=== PATIENT | female | born 1965 | race Two or more races ===

== ENCOUNTER → 2017-01-13 | Outpatient (REF) | payer OTHER | LOC: M SFHCLERA 11:43 | PROVIDERS: ATTEND Nurse Practitioner Family | DX: R30.0 Dysuria (principal); H69.83 Other specified disorders of Eustachian tube, bilateral ==

== ENCOUNTER → 2017-06-20 | Outpatient (CLI) | payer OTHER | LOC: M RAD 14:56 | DX: Z09 Encounter for follow-up examination after completed treatment for conditions other than malignant neoplasm (principal); R93.49 Abnormal radiologic findings on diagnostic imaging of other urinary organs; Z87.442 Personal history of urinary calculi | CPT/HCPCS: 74176 ==

== ENCOUNTER 2017-07-27 05:51 | Day surgery (SDC) | payer OTHER ==
[2017-07-27] MEDS: LIDOCAINE 3.5 % 1ML OPHTH TOPICAL GEL OU (06:50)
[2017-07-27] MEDS: OFLOXACIN 0.3 % (OCUFLOX) OPTH SOL 5ML OS (06:55)
[2017-07-27] MEDS ORDERED: MIDAZOLAM INJ 2 MG/2 ML VIAL (J2250) As Ordered ×2 (07:29→11:13)
[2017-07-27] MEDS ORDERED: fentaNYL 100 MCG/2 ML INJECTION (J3010) As Ordered ×2 (07:29→11:13)
[2017-07-27] MEDS: POVIDONE-IODINE 5% OPHTH PREP SOL 30ML As Ordered (08:36)
[2017-07-27] MEDS ORDERED: LIDOCAINE 2% INJ 100 MG/5 ML SDV (FOR ANES.) As Ordered (08:37)
[2017-07-27] MEDS ORDERED: PROPOFOL 200 MG/20 ML VIAL As Ordered (08:37)
[2017-07-27] MEDS: mitoMYcin 0.2 MG/VIAL KIT FOR OPHTHALMIC USE (J7315 PER 0.2MG) As Ordered (08:45)
[2017-07-27] MEDS: LIDOCAINE 2% W/EPIN INJ 20ML **PRES FREE As Ordered (08:55)
[2017-07-27] MEDS: TOBRADEX OPHTH OINT 3.5 GM As Ordered (08:59)
[2017-07-27] MEDS: TOBRAMYCIN INJ 80 MG/2 ML VIAL (J3260) As Ordered (09:00)
[2017-07-27] MEDS: BETAMETHASONE SOLUSPAN 6MG/ML INJ 5ML (J0702) As Ordered (09:01)
[2017-07-27] MEDS ORDERED: ACETAMINOPHEN TAB 650MG DOSE (2X325MG) PO (09:30)
[2017-07-27] MEDS ORDERED: LR 1,000 ML IV (09:30)
[2017-07-27] MEDS ORDERED: ONDANSETRON 4MG/2ML VIAL (J2405) IV (09:30)
== END 2017-07-27 09:30 | disposition home or self-care (01) ==
LOC: M SDC 05:51
DX: H11.002 Unspecified pterygium of left eye (principal); F41.9 Anxiety disorder, unspecified; Z87.440 Personal history of urinary (tract) infections; Z88.0 Allergy status to penicillin; Z88.8 Allergy status to other drugs, medicaments and biological substances; Z79.899 Other long term (current) drug therapy
CPT/HCPCS: 65426

== ENCOUNTER → 2018-02-03 | Outpatient (REF) | payer OTHER ==
[2018-02-03 22:00] LABS: CHLAMYDIA DNA AMPLIFICATION NEGATIVE (NEGATIVE); GC DNA AMPLIFICATION NEGATIVE (NEGATIVE)
== END ==
LOC: M SFHCLERA 15:06
DX: R30.0 Dysuria (principal)

== ENCOUNTER → 2018-05-12 | Outpatient (REF) | payer OTHER ==
[~2018-05-12] MED LIST: CYCL10TA PO; FISH120012 PO; HAIR1TAB5 PO; IBUP-1114 PO; IRON65TA PO; MAGN200T PO; MULT1TAB18 PO; PROBCAP4 PO; VITA500046 PO; VITA500T PO; VITA500T53 PO; VITA50TA43 PO
== END ==
LOC: M SFHCLERA 11:53
PROVIDERS: ATTEND Nurse Practitioner Family
DX: R10.9 Unspecified abdominal pain (principal)

== ENCOUNTER → 2018-05-25 | Outpatient (CLI) | payer OTHER ==
[2018-05-25 13:51] LABS: BACTERIA, URINE AUTO NEGATIVE (NEGATIVE); MUCUS, URINE SMALL (NEGATIVE); RBC, URINE AUTO 0 /HPF (0-3); SQUAMOUS EPITHELIAL CELL UR AU 0 /HPF (0-6); WBC, URINE AUTO 1 /HPF (0-3)
[2018-05-25 14:16] LABS: BLOOD UREA NITROGEN 17 MG/DL (7-18); CARBON DIOXIDE LEVEL 27 MEQ/L (21-32); CHLORIDE LEVEL 106 MEQ/L (98-107); CREATININE FOR GFR 0.97 MG/DL (0.55-1.30); GLOMERULAR FILTRATION RATE > 60.0 (>51); GLUCOSE, FASTING 102 MG/DL (70-100); POTASSIUM SERUM 4.4 MEQ/L (3.5-5.1); SODIUM LEVEL 140 MEQ/L (136-145)
== END ==
LOC: M SMT 09:34
PROVIDERS: ATTEND Specialist
DX: R35.0 Frequency of micturition (principal)

== ENCOUNTER → 2018-06-25 | Outpatient (REF) | payer OTHER | LOC: M SFHCLERA 16:35 | PROVIDERS: ATTEND Nurse Practitioner Family | DX: R30.0 Dysuria (principal) ==

== ENCOUNTER 2018-08-02 11:33 | Outpatient (RCR) | payer OTHER ==
[~2018-08-02 11:33] MED LIST changes: +VITA500T17 PO; -VITA500T53 PO
== END 2018-08-08 ==
LOC: M PT 11:33
PROVIDERS: ATTEND Nurse Practitioner Family
DX: R32 Unspecified urinary incontinence (principal)

== ENCOUNTER 2018-09-06 08:00 | Outpatient (RCR) | payer OTHER | END 2018-09-08 | LOC: M PT 08:00 | PROVIDERS: ATTEND Nurse Practitioner Family | DX: R39.89 Other symptoms and signs involving the genitourinary system (principal) ==

== ENCOUNTER 2018-10-04 08:45 | Outpatient (RCR) | payer OTHER | END 2018-10-08 | LOC: M PT 08:45 | PROVIDERS: ATTEND Nurse Practitioner Family | DX: R32 Unspecified urinary incontinence (principal); R39.89 Other symptoms and signs involving the genitourinary system ==

== ENCOUNTER 2018-10-27 08:44 | Outpatient (RCR) | payer OTHER | END 2018-11-08 | LOC: M PT 08:44 | PROVIDERS: ATTEND Nurse Practitioner Family | DX: Z51.89 Encounter for other specified aftercare (principal); R39.89 Other symptoms and signs involving the genitourinary system; R32 Unspecified urinary incontinence ==

== ENCOUNTER → 2019-05-30 | Outpatient (REF) | payer OTHER | LOC: M SFHCLERA 13:13 | PROVIDERS: ATTEND Nurse Practitioner Family | DX: R35.0 Frequency of micturition (principal) | CPT/HCPCS: 81002; 87086; G0463 ==

== ENCOUNTER → 2022-04-28 | Outpatient (CLI) | payer OTHER ==
[~2022-04-28] MED LIST changes: +CYCL-707 PO; -CYCL10TA PO; +VITA-243 PO; -VITA500T PO
[2022-04-28 11:33] LABS: LIPASE 413 U/L (12-53)
[2022-04-28 11:34] LABS: IMMUNOGLOBULIN A 306.2 MG/DL (40-350)
[2022-04-28 11:36] LABS: ALBUMIN 3.7 G/DL (3.2-5.2); ALKALINE PHOSPHATASE 93 U/L (46-116); ALT/SGPT 38 U/L (7.0-40); AST/SGOT 20 U/L (<34); BILIRUBIN,TOTAL 0.3 MG/DL (0.3-1.2); BLOOD UREA NITROGEN 17 MG/DL (9-23); CALCIUM LEVEL 9.3 MG/DL (8.5-10.1); CARBON DIOXIDE LEVEL 32 MMOL/L (20-31); CHLORIDE LEVEL 104 MMOL/L (98-107); CREATININE FOR GFR 0.96 MG/DL (0.55-1.30); GLOMERULAR FILTRATION RATE > 60.0 (>51); GLUCOSE, FASTING 105 MG/DL (60-100); POTASSIUM SERUM 4.5 MMOL/L (3.5-5.1); SODIUM LEVEL 141 MMOL/L (136-145)
[2022-04-28 11:49] LABS: CA19-9 TUMOR MARKER,CARBOHYDRA 2.2 U/ML (<35.0)
[2022-04-30 07:09] LABS: TISSUE TRANSGLUTAMINASE IgA <2 U/mL (0-3)
== END ==
LOC: M LAB 10:37
PROVIDERS: ATTEND Internal Medicine Gastroenterology
DX: D37.8 Neoplasm of uncertain behavior of other specified digestive organs (principal)

== ENCOUNTER 2022-05-20 07:44 | Day surgery (SDC) | payer OTHER ==
[~2022-05-20] VITALS: Ht 167.6 cm; Wt 91.6 kg
[~2022-05-20 07:44] MED LIST changes: +CREO3600; +CVS-161 PO; +CVS1CAP5 PO; +DULO1CAP5 PO; +GING1CAP PO; +IRON65TA2 PO; +KP F1200 PO; +NERVE; +NS 1,000 ML IV ONE; +RA T500C2 PO; +VITA100093 PO; +VITMTA PO
[2022-05-20] MEDS ORDERED: MACR100C43 PO (08:31)
[2022-05-20] MEDS ORDERED: LIDOCAINE 2% 100MG/5ML SDV (FOR ANES.) As Ordered ONE (09:13)
[2022-05-20] MEDS ORDERED: propofoL 200 MG/20 ML VIAL As Ordered ONE (09:13)
[2022-05-20 09:51] VITALS: BP 120/58
== END 2022-05-20 09:59 | disposition home or self-care (01) ==
LOC: M OPP 07:44
PROVIDERS: ATTEND Internal Medicine Gastroenterology
DX: Z12.11 Encounter for screening for malignant neoplasm of colon (principal); Z86.010 Personal history of colon polyps; K63.5 Polyp of colon; K57.30 Diverticulosis of large intestine without perforation or abscess without bleeding; K64.8 Other hemorrhoids; Z79.1 Long term (current) use of non-steroidal anti-inflammatories (NSAID); Z79.899 Other long term (current) drug therapy

== ENCOUNTER → 2022-10-07 | Outpatient (CLI) | payer OTHER ==
[~2022-10-07] MED LIST changes: +MACR100C43 PO; -NS 1,000 ML IV ONE
[2022-10-07 08:55] LABS: TOTAL IRON BINDING CAPACITY 306 UG/DL (250-425)
[2022-10-07 08:56] LABS: ALBUMIN 3.6 G/DL (3.2-5.2); ALKALINE PHOSPHATASE 89 U/L (46-116); ALT/SGPT 23 U/L (7.0-40); AST/SGOT 11 U/L (<34); BILIRUBIN,DIRECT < 0.1 MG/DL (<0.4); BILIRUBIN,TOTAL 0.4 MG/DL (0.3-1.2); IRON (FE) 66 UG/DL (50-170); PERCENT SATURATION 21.6 % (13.2-45.0); TOTAL PROTEIN 6.5 G/DL (5.7-8.2)
[2022-10-07 09:20] LABS: HEPATITIS B SURFACE ANTIGEN NEGATIVE (NEGATIVE)
[2022-10-07 09:41] LABS: HEPATITIS B CORE ANTIBODY IGM NEGATIVE (NEGATIVE); HEPATITIS C VIRUS ABY INDEX 0.08 INDEX (<0.8)
[2022-10-11 18:07] LABS: ALPHA 1 ANTITRYPSIN 120 mg/dL (101-187); ANCA-ATYPICAL <1:20 titer (Neg:<1:20); ANTI-MITOCHONDRIAL ANTIBODY <20.0 Units (0.0-20.0); ANTINUCLEAR ANTIBODIES DIRECT Negative (Negative); CERULOPLASMIN 24.5 mg/dL (19.0-39.0); CYTOPLASMIC NEUTROP AB ANCA-C <1:20 titer (Neg:<1:20); PERINUCLEAR AB ANCA-P <1:20 titer (Neg:<1:20); TISSUE TRANSGLUTAMINASE IgA <2 U/mL (0-3)
== END ==
LOC: M RAD 07:52
PROVIDERS: ATTEND Internal Medicine Gastroenterology
DX: K76.0 Fatty (change of) liver, not elsewhere classified (principal); R93.2 Abnormal findings on diagnostic imaging of liver and biliary tract

== ENCOUNTER 2022-10-22 18:16 | Emergency (ER) | payer OTHER ==
[~2022-10-22] VITALS: Ht 167.6 cm; Wt 90.9 kg
[2022-10-22 20:31] LABS: BASO # 0.1 10^3/uL (0.0-0.2); BASO % 0.9 % (0.0-1.0); EOS # 0.1 10^3/uL (0.0-0.5); EOS % 2.6 % (0.0-3.0); HEMOGLOBIN 14.4 g/dl (12.0-15.5); LYMPH % 36.7 % (24.0-44.0); MEAN CORPUSCULAR HEMOGLOBIN 29.8 pg (27.0-33.0); MEAN CORPUSCULAR HGB CONC 34.3 g/dl (32.0-36.5); MONO # 0.6 10^3/uL (0.0-0.8); MONO % 10.5 % (2.0-8.0); NEUTROPHILS # 2.7 10^3/uL (1.5-8.5); NEUTROPHILS % 48.9 % (36.0-66.0); PLATELET COUNT, AUTOMATED 240 10^3/uL (150-450); RED BLOOD COUNT 4.83 10^6/uL (4.00-5.40); WHITE BLOOD COUNT 5.4 10^3/uL (4.0-10.0)
[2022-10-22 21:04] LABS: LIPASE 48 U/L (12-53)
[2022-10-22 21:06] LABS: ALBUMIN 3.8 G/DL (3.2-5.2); ALKALINE PHOSPHATASE 109 U/L (46-116); ALT/SGPT 27 U/L (7.0-40); AST/SGOT 13 U/L (<34); BILIRUBIN,DIRECT < 0.1 MG/DL (<0.4); BILIRUBIN,TOTAL 0.3 MG/DL (0.3-1.2); BLOOD UREA NITROGEN 21 MG/DL (9-23); CALCIUM LEVEL 9.5 MG/DL (8.5-10.1); CARBON DIOXIDE LEVEL 26 MMOL/L (20-31); CHLORIDE LEVEL 107 MMOL/L (98-107); CREATININE FOR GFR 1.11 MG/DL (0.55-1.30); GLOMERULAR FILTRATION RATE 53.9 (>51); GLUCOSE, FASTING 98 MG/DL (60-100); POTASSIUM SERUM 4.5 MMOL/L (3.5-5.1); SODIUM LEVEL 140 MMOL/L (136-145); TOTAL PROTEIN 6.6 G/DL (5.7-8.2)
[2022-10-23] MEDS ORDERED: KETOROLAC 30 MG/ML 1ML VIAL IM ONE (05:05)
[2022-10-23] MEDS ORDERED: PHENAZOPYRIDINE 100 MG TAB PO ONE (05:05)
[2022-10-23] MEDS ORDERED: LIDOCAINE 1% SDV 5ML VIAL DILUENT ONE (06:50)
[2022-10-23] MEDS ORDERED: cefTRIAXone SOD 1GM VIAL IM ONE (06:50)
[2022-10-23] MEDS ORDERED: PYRI1TAB5 PO (07:28)
[2022-10-23 07:35] VITALS: BP 115/55; TEMP 96.7; O2SAT 100
== END 2022-10-23 08:03 | disposition home or self-care (01) ==
LOC: M ED 18:16
DX: N30.00 Acute cystitis without hematuria (principal); N30.10 Interstitial cystitis (chronic) without hematuria; Z88.0 Allergy status to penicillin; Z88.8 Allergy status to other drugs, medicaments and biological substances; Z79.899 Other long term (current) drug therapy
CPT/HCPCS: 76775; 80048; 80076; 81001; 83690; 85025; 87086; 96372; 99283; J0696; J1885

== ENCOUNTER → 2022-11-08 | Outpatient (CLI) | payer OTHER ==
[~2022-11-08] MED LIST changes: +ISOVUE-370 76% 100ML VIAL As Ordered ONE; +PYRI1TAB5 PO
== END ==
LOC: M RAD 07:43
PROVIDERS: ATTEND Internal Medicine Gastroenterology
DX: R59.0 Localized enlarged lymph nodes (principal)
CPT/HCPCS: 71260; Q9967

== ENCOUNTER → 2023-11-24 | Outpatient (REF) | payer OTHER ==
[~2023-11-24] MED LIST changes: -ISOVUE-370 76% 100ML VIAL As Ordered ONE
[2023-11-24 13:25] LABS: APPEARANCE, URINE CLEAR (CLEAR); BACTERIA, URINE AUTO NEGATIVE (NEGATIVE); BILIRUBIN, URINE AUTO NEGATIVE (NEGATIVE); BLOOD, URINE BLOOD NEGATIVE (NEGATIVE); COLOR, URINE YELLOW (YELLOW); GLUCOSE, URINE (UA) AUTO NEGATIVE (NEGATIVE); KETONE, URINE AUTO NEGATIVE (NEGATIVE); LEUKOCYTE ESTERASE, URINE AUTO NEGATIVE (NEGATIVE); MUCUS, URINE SMALL (NEGATIVE); NITRITE, URINE AUTO NEGATIVE (NEGATIVE); PROTEIN, URINE AUTO NEGATIVE (NEGATIVE); RBC, URINE AUTO 0 /HPF (0-3); SPECIFIC GRAVITY URINE AUTO 1.013 (1.002-1.035); SQUAMOUS EPITHELIAL CELL UR AU 0 /HPF (0-6); UROBILINOGEN, URINE AUTO 0.2 mg/dL (0.0-2.0); WBC, URINE AUTO 0 /HPF (0-3)
== END ==
LOC: M SMT 13:03
PROVIDERS: ATTEND Physician Assistant
DX: R32 Unspecified urinary incontinence (principal)

== ENCOUNTER → 2023-12-14 | Outpatient (CLI) | payer OTHER | LOC: M PLAIMG 08:59 | PROVIDERS: ATTEND Internal Medicine | DX: R01.1 Cardiac murmur, unspecified (principal) ==

== ENCOUNTER → 2024-03-14 | Outpatient (CLI) | payer OTHER ==
[~2024-03-14] MED LIST changes: +CEFP200T PO; +DULO1CAP4 PO; +METH-1164 PO; +METH-855 PO
[2024-03-14 13:57] LABS: HEMATOCRIT 41.8 % (36.0-47.0); HEMOGLOBIN 13.9 g/dl (12.0-15.5); MEAN CORPUSCULAR HEMOGLOBIN 30.1 pg (27.0-33.0); MEAN CORPUSCULAR HGB CONC 33.3 g/dl (32.0-36.5); MEAN CORPUSCULAR VOLUME 90.5 fl (80.0-96.0); PLATELET COUNT, AUTOMATED 243 10^3/uL (150-450); RED BLOOD COUNT 4.62 10^6/uL (4.00-5.40); WHITE BLOOD COUNT 5.3 10^3/uL (4.0-10.0)
[2024-03-14 14:33] LABS: ALBUMIN 3.7 G/DL (3.2-5.2); ALKALINE PHOSPHATASE 83 U/L (35-104); ALT/SGPT 37 U/L (7.0-40); AST/SGOT 13 U/L (<34); BILIRUBIN,TOTAL 0.3 MG/DL (0.3-1.2); BLOOD UREA NITROGEN 19 MG/DL (9-23); CALCIUM LEVEL 10.1 MG/DL (8.5-10.1); CARBON DIOXIDE LEVEL 28 MMOL/L (20-31); CHLORIDE LEVEL 109 MMOL/L (98-107); CREATININE FOR GFR 0.98 MG/DL (0.55-1.30); GLOMERULAR FILTRATION RATE > 60.0 (>51); GLUCOSE, FASTING 105 MG/DL (60-100); POTASSIUM SERUM 4.2 MMOL/L (3.5-5.1); SODIUM LEVEL 144 MMOL/L (136-145); TOTAL PROTEIN 6.8 G/DL (5.7-8.2)
== END ==
LOC: M RAD 12:29
PROVIDERS: ATTEND Urology
DX: N39.3 Stress incontinence (female) (male) (principal)

== ENCOUNTER 2024-03-19 07:52 | Day surgery (SDC) | payer OTHER ==
[~2024-03-19] VITALS: Ht 167.6 cm; Wt 96.2 kg
[~2024-03-19 07:52] MED LIST changes: -CEFP200T PO
[2024-03-19] MEDS ORDERED: CEFP200T PO (08:25)
[2024-03-19] MEDS ORDERED: NS (Normal Saline) 0.9% 1,000 ML IV SCH ×2 (08:25→10:30)
[2024-03-19] MEDS ORDERED: propofoL 200 MG/20 ML VIAL As Ordered ONE (08:35)
[2024-03-19] MEDS ORDERED: ACETAMINOPHEN 1000MG/100ML IV BAG As Ordered ONE (08:35)
[2024-03-19] MEDS ORDERED: ONDANSETRON 4MG 2ML VIAL As Ordered ONE (08:35)
[2024-03-19] MEDS ORDERED: LIDOCAINE 2% 100MG/5ML SDV (FOR ANES.) As Ordered ONE (08:35)
[2024-03-19] MEDS ORDERED: fentaNYL 100 MCG/2 ML INJECTION As Ordered ONE (08:36)
[2024-03-19] MEDS ORDERED: MIDAZOLAM INJ 2MG/2ML VIAL As Ordered ONE (08:36)
[2024-03-19] MEDS: ceFAZolin SOD 2 GM in IV 1 EA IV ONE (10:21)
[2024-03-19] MEDS ORDERED: HYDROMORPHONE HCL 0.5 MG/ 0.5 ML SYRINGE IV PRN (10:30)
[2024-03-19] MEDS ORDERED: oxyCODONE 5MG TAB PO PRN (10:30)
[2024-03-19] MEDS ORDERED: ONDANSETRON 4MG 2ML VIAL IV PRN (10:30)
[2024-03-19] MEDS ORDERED: fentaNYL 100 MCG/2 ML INJECTION IV PRN (10:30)
[2024-03-19 11:08] VITALS: BP 123/61; TEMP 97; O2SAT 96
== END 2024-03-19 11:30 | disposition home or self-care (01) ==
LOC: M SDC 07:52
PROVIDERS: ATTEND Urology
DX: N39.3 Stress incontinence (female) (male) (principal); Z88.8 Allergy status to other drugs, medicaments and biological substances; Z79.899 Other long term (current) drug therapy; Z87.891 Personal history of nicotine dependence
CPT/HCPCS: 51715; A4215; A4649; J0690; J1100; J2250; J2405; J3010; L8606

== ENCOUNTER → 2024-04-09 | Outpatient (CLI) | payer OTHER ==
[~2024-04-09] MED LIST changes: +CEFP200T PO
== END ==
LOC: M RAD 07:11
PROVIDERS: ATTEND Physician Assistant Medical
DX: K76.0 Fatty (change of) liver, not elsewhere classified (principal)